=== PATIENT | male | born 1970 | race Hispanic/Latino ===

== ENCOUNTER 2021-08-28 11:22 | Emergency (ER) | payer OTHER ==
[2021-08-28 12:37] VITALS: BP 138/76
[2021-08-28] MEDS ORDERED: KETOROLAC 60 MG/2 ML INJ IM ONE (12:49)
--- NOTE | 2021-08-28 13:34 | XRay Report ---
LUMBOSACRAL SPINE 2 VIEWS INDICATION: lower back pain after fall. COMPARISON: None. IMPRESSION: Normal alignment. Mild multilevel discogenic DJD and facet arthropathy are identified. No acute osseous or soft tissue abnormality. Signer Name: Tom Fraire Jr, MD Signed: 08/28/2021 1:29 PM Workstation Name: [id number]
--- NOTE | 2021-08-28 13:48 | Emergency Department Report ---
ED Back Pain/Injury HPI - General Chief Complaint: Back Pain/Injury Stated Complaint: FALL/WORKERS COMP Time Seen by Provider: 08/28/21 12:18 Source: patient Limitations: No Limitations - History of Present Illness Initial Comments: 51-year-old morbidly obese male without any past medical history presents to the hospital planing of persistent lower back pain since fall at work 4 days ago. 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 He fell while sitting down on a folding chair at the air rolled from under him. Fell on his buttock and has had lower back pain since fall. He denies lower extremity paresthesias, weakness, or urinary incontinence. Pain is moderate constant,, prolonged sitting worse with movement and palpation and he is not currently taking any medications for pain. - Related Data Previous Rx's Medication Instructions Recorded Last Taken Type Cyclobenzaprine [Flexeril] 10 mg PO TID PRN #20 tab 08/28/21 Unknown Rx Ibuprofen [Motrin] 800 mg PO Q8HR PRN #20 tablet 08/28/21 Unknown Rx Allergies Allergy/AdvReac Type Severity Reaction Status Date / Time No Known Allergies Allergy Unverified 08/28/21 12:49 ED Review of Systems ROS: Stated complaint: FALL/WORKERS COMP Other details as noted in HPI Comment: All other systems reviewed and negative ED Past Medical Hx - Past Medical History Previous Medical History?: No - Surgical History Past Surgical History?: No - Social History Smoking Status: Unknown if ever smoked - Medications Home Medications: Home Medications Medication Instructions Recorded Confirmed Last Taken Type Cyclobenzaprine [Flexeril] 10 mg PO TID PRN #20 tab 08/28/21 Unknown Rx Ibuprofen [Motrin] 800 mg PO Q8HR PRN #20 tablet 08/28/21 Unknown Rx ED Physical Exam - General Limitations: No Limitations - Other Other exam information: General: No acute distress Head: Atraumatic Eyes: normal appearance ENT: Moist mucous membranes Neck: Normal appearance, no midline tenderness Chest: Clear to auscultation bilaterally CV: Regular rate and rhythm Abdomen: Soft, normal bowel sounds, nontender, nondistended, no rebound or guarding Back: Normal inspection, midline lumbar spinal tenderness also left sided paraspinal muscle tenderness. The right Extremity: Normal inspection, full range of motion Neuro: Alert O x 3, no facial asymmetry, speech clear, no gross motor sensory deficit Psych: Appropriate behavior Skin: No rash ED Course Vital Signs 08/28/21 12:32 Temperature 97.9 F Pulse Rate 86 Respiratory 18 Rate Blood Pressure 138/76 O2 Sat by Pulse 100 Oximetry ED Medical Decision Making - Radiology Data Radiology results: report reviewed LUMBOSACRAL SPINE 2 VIEWS INDICATION: lower back pain after fall. COMPARISON: None. IMPRESSION: Normal alignment. Mild multilevel discogenic DJD and facet arthropathy are identified. No acute osseous or soft tissue abnormality. - Medical Decision Making 51-year-old male presents to the hospital after a fall with persistent lower back pain without any neurologic deficit. X-ray does not reveal any acute fractures. Patient will be treated symptomatically. Received Toradol in the ED. Outpatient follow-up advised Critical Care Time: No Critical care attestation.: If time is entered above; I have spent that time in minutes in the direct care of this critically ill patient, excluding procedure time. ED Disposition Clinical Impression: Fall from chair, Lumbar back sprain, DJD (degenerative joint disease), lumbar Disposition: HOME / SELF CARE / HOMELESS Is pt being admited?: No Does the pt Need Aspirin: No Condition: Stable Instructions: Lumbar Sprain Additional Instructions: Take the medication as prescribed. Follow-up with your doctor or doctor/clinic provided. Return if symptoms worsen as indicated by your discharge instructions. Prescriptions: Cyclobenzaprine [Flexeril] 10 mg PO TID PRN #20 tab PRN Reason: Muscle Spasm Ibuprofen [Motrin] 800 mg PO Q8HR PRN #20 tablet PRN Reason: Pain , Severe (7-10) Referrals: PANDA HELM MD [Primary Care Provider] - 3-5 Days HERMINIA LARRY MD [Staff Physician] - 3-5 Days
== END 2021-08-28 15:00 | disposition home or self-care (01) ==
LOC: ED 11:22
DX: S33.5XXA Sprain of ligaments of lumbar spine, initial encounter (principal); W07.XXXA Fall from chair, initial encounter; Y93.89 Activity, other specified; Y92.89 Other specified places as the place of occurrence of the external cause; Y99.8 Other external cause status; M19.09 Primary osteoarthritis, other specified site
CPT/HCPCS: 72100; 99283; J1885

== ENCOUNTER 2021-10-05 09:49 | Emergency (ER) | payer OTHER ==
[2021-10-05] MEDS ORDERED: IBUPROFEN 800 MG TAB PO ONE (11:09)
--- NOTE | 2021-10-05 11:53 | XRay Report ---
LUMBOSACRAL SPINE 3 VIEWS INDICATION: back pain s/p fall. COMPARISON: 08/28/2021 IMPRESSION: Normal alignment. Mild multilevel degenerative changes appear stable since 08/28/2021. No acute osseous or soft tissue abnormality. Signer Name: Tom Fraire Jr, MD Signed: 10/05/2021 11:48 AM Workstation Name: [id number]
--- NOTE | 2021-10-05 12:19 | Emergency Department Report ---
ED Back Pain/Injury HPI - General Chief Complaint: Back Pain/Injury Stated Complaint: FELL HURT BACK Time Seen by Provider: 10/05/21 11:02 Source: patient Limitations: No Limitations - History of Present Illness Initial Comments: This is a 51-year-old male nontoxic, well nourished in appearance, no acute signs of distress presents to the ED with c/o of lower back pain. Patient stated that he had a fall from sitting in a chair while at work. Denies any other injuries or complaints. Denies any LOC. Patient denies any radiation of pain. Patient denies any injuries or trauma. Denies any bladder or bowel instability. Patient denies any urinary symptoms. Denies any fever, chills, nausea, vomiting, headache, stiff neck, chest pain or shortness of breath. Patient denies any numbness or tingling. Denies any allergies. Denies significant past medical history. MD Complaint: back pain -: days(s) Similar Symptoms Previously: Yes Place: work Radiation: none Severity: mild Severity scale (0 -10): 8 Quality: aching Consistency: now resolved Improves With: immobilization, sitting upright Worsens With: movement, walking Context: fall Associated Symptoms: denies other symptoms. denies: confusion, weakness, chest pain, numbness, difficulty walking, cough, difficulty urinating, diaphoresis, incontinence, fever/chills, constipation, headaches, abdominal pain, malaise, nausea/vomiting, rash, seizure, shortness of breath, syncope - Related Data Previous Rx's Medication Instructions Recorded Last Taken Type Cyclobenzaprine [Flexeril] 10 mg PO TID PRN #20 tab 08/28/21 Unknown Rx Ibuprofen [Motrin] 800 mg PO Q8HR PRN #20 tablet 08/28/21 Unknown Rx Cyclobenzaprine [Flexeril] 10 mg PO QHS PRN #10 tab 10/05/21 Unknown Rx Naproxen 500 mg PO Q12H PRN #12 tab 10/05/21 Unknown Rx Allergies Allergy/AdvReac Type Severity Reaction Status Date / Time No Known Allergies Allergy Verified 10/05/21 10:02 ED Review of Systems ROS: Stated complaint: FELL HURT BACK Other details as noted in HPI Comment: All other systems reviewed and negative Constitutional: denies: chills, fever Eyes: denies: eye pain, eye discharge, vision change ENT: denies: ear pain, throat pain Respiratory: denies: cough, shortness of breath, wheezing Cardiovascular: denies: chest pain, palpitations Endocrine: no symptoms reported Gastrointestinal: denies: abdominal pain, nausea, diarrhea Genitourinary: denies: urgency, dysuria Musculoskeletal: back pain. denies: joint swelling, arthralgia Skin: denies: rash, lesions Neurological: denies: headache, weakness, paresthesias Psychiatric: denies: anxiety, depression Hematological/Lymphatic: denies: easy bleeding, easy bruising ED Past Medical Hx - Past Medical History Previous Medical History?: No - Surgical History Past Surgical History?: No - Social History Smoking Status: Unknown if ever smoked - Medications Home Medications: Home Medications Medication Instructions Recorded Confirmed Last Taken Type Cyclobenzaprine [Flexeril] 10 mg PO TID PRN #20 tab 08/28/21 Unknown Rx Ibuprofen [Motrin] 800 mg PO Q8HR PRN #20 tablet 08/28/21 Unknown Rx Cyclobenzaprine [Flexeril] 10 mg PO QHS PRN #10 tab 10/05/21 Unknown Rx Naproxen 500 mg PO Q12H PRN #12 tab 10/05/21 Unknown Rx ED Physical Exam - General Limitations: No Limitations General appearance: alert, in no apparent distress - Head Head exam: Present: atraumatic, normocephalic - Eye Eye exam: Present: normal appearance - Neck Neck exam: Present: normal inspection, full ROM. Absent: lymphadenopathy - Respiratory Respiratory exam: Absent: respiratory distress - Cardiovascular Cardiovascular Exam: Present: regular rate - GI/Abdominal GI/Abdominal exam: Present: soft. Absent: distended, guarding, rebound, rigid - Extremities Exam Extremities exam: Present: normal inspection, full ROM, normal capillary refill. Absent: tenderness - Back Exam Back exam: Present: normal inspection, full ROM, paraspinal tenderness (lumbar paraspinal). Absent: tenderness, CVA tenderness (R), CVA tenderness (L), muscle spasm, vertebral tenderness, rash noted - Expanded Back Exam Expanded Back exam: Absent: saddle anesthesia Back exam: Negative Straight Leg Raising: Right, Left - Neurological Exam Neurological exam: Present: alert, oriented X3, normal gait - Psychiatric Psychiatric exam: Present: normal affect, normal mood - Skin Skin exam: Present: warm, dry, intact, normal color. Absent: rash ED Course Vital Signs 10/05/21 10/05/21 10:00 11:34 Temperature 98.3 F Pulse Rate 75 Respiratory 14 18 Rate Blood Pressure 112/71 O2 Sat by Pulse 97 Oximetry - Reevaluation(s) Reevaluation #1: 10/05/21 12:20 Patient is speaking in full sentences with no signs of distress noted. ED Medical Decision Making - Radiology Data [facility] [address] [place] [address] XRay Report Signed Patient: JENARO TRISTAN MR#: [id number] : 1970 Acct:[id number] Age/Sex: 51 / M ADM Date: 10/05/21 Loc: ED Attending Dr: Ordering Physician: RODDY GUZMAN NP Date of Service: 10/05/21 Procedure(s): XR spine lumbosacral 2-3V Accession Number(s): [id number] cc: RODDY GUZMAN NP Fluoro Time In Minutes: LUMBOSACRAL SPINE 3 VIEWS INDICATION: back pain s/p fall. COMPARISON: 08/28/2021 IMPRESSION: Normal alignment. Mild multilevel degenerative changes appear stable since 08/28/2021. No acute osseous or soft tissue abnormality. Signer Name: Tom Fraire Jr, MD Signed: 10/05/2021 11:48 AM Workstation Name: [id number] Transcribed By: TTR Dictated By: TOM FRAIRE JR, MD Electronically Authenticated By: TOM FRAIRE JR, MD Signed Date/Time: 10/05/21 1148 DD/ 1147 TD/TT: - Medical Decision Making This is a 51-year-old male that presents with low back injury. Patient is stable was examined by me. Patient is notified of the imaging results with no questions noted by the patient. Patient was instructed to possibly get an MRI if symptoms worsen. There is no cauda equina syndrome during examination. No bladder or bowel instability. Patient received Motrin in the ED which stated his symptoms has resolved and subsided. Patient is discharged with muscle relaxant and naproxen. patient was instructed not to operate any machinery while taking muscle relaxant as they cause her drowsiness. Patient was referred to Follow-up with a primary care doctor in 3-5 days or if symptoms worsen and continue return to emergency room as soon as possible. At time of discharge, the patient does not seem toxic or ill in appearance. No acute signs of distress noted. Patient agrees to discharge treatment plan of care. No further questions noted by the patient. This chart is dictated with using [employer] Critical care attestation.: If time is entered above; I have spent that time in minutes in the direct care of this critically ill patient, excluding procedure time. ED Disposition Clinical Impression: Fall Qualifiers: Encounter type: initial encounter Qualified Code(s): W19.XXXA - Unspecified fall, initial encounter Lower back injury Qualifiers: Encounter type: initial encounter Qualified Code(s): S39.92XA - Unspecified injury of lower back, initial encounter Disposition: HOME / SELF CARE / HOMELESS Is pt being admited?: No Does the pt Need Aspirin: No Condition: Stable Additional Instructions: Follow-up with your primary care doctor in 3-5 days or if symptoms worsen such as bladder or bowel stability, chest pain, short of breath, numbness or tingling sensation in extremities, headache, dizziness, visual changes, nausea vomiting, or abdominal pain, return back to emergency room as was possible. Take naproxen and Flexeril as prescribed. Do not operate heavy machinery while taking Flexeril due to sedation Prescriptions: Cyclobenzaprine [Flexeril] 10 mg PO QHS PRN #10 tab PRN Reason: Muscle Spasm Naproxen 500 mg PO Q12H PRN #12 tab PRN Reason: Pain , Severe (7-10) Referrals: PRIMARY CAREMD [Referring] - 3-5 Days VANGIE REYNAGA MD [Staff Physician] - 3-5 Days HERMINIA LARRY MD [Staff Physician] - 3-5 Days Forms: Work/School Release Form(ED) Time of Disposition: 12:23
[2021-10-05 12:47] VITALS: BP 125/66
== END 2021-10-05 12:30 | disposition home or self-care (01) ==
LOC: ED 09:49
DX: S39.92XA Unspecified injury of lower back, initial encounter (principal); W19.XXXA Unspecified fall, initial encounter; Y93.89 Activity, other specified; Y92.89 Other specified places as the place of occurrence of the external cause; Y99.8 Other external cause status
CPT/HCPCS: 72100; 99283